=== PATIENT | male | born 1945 | race Caucasian/White ===

== ENCOUNTER 2017-10-13 06:28 | Day surgery (SDC) | payer MEDICARE, OTHER ==
[2017-10-13] MEDS ORDERED: Lactated Ringers 1,000 ML IV SCH (06:45)
--- NOTE | 2017-10-13 07:38 | PCM.HP ---
H&P History of Present Illness - General Date of Service: 10/13/17 Admit Problem/Dx: Admission Diagnosis/Problem Admission Diagnosis/Problem Colonoscopy Source of Information: Patient - History of Present Illness Initial Comments - Free Text/Narative: 72 yo wm who has a hx of colon polyps. He presents for follow up exam. Old records are not available for review. - Related Data Allergies/Adverse Reactions: Allergies Allergy/AdvReac Type Severity Reaction Status Date / Time No Known Allergies Allergy Verified 10/10/17 13:47 Home Medications: Home Meds Ascorbic Acid [Vitamin C] 1,000 mg PO DAILY 10/10/17 [History] Cholecalciferol (Vitamin D3) [Vitamin D3] 400 unit PO DAILY 10/10/17 [History] Cinnamon Bark [Cinnamon] 10/10/17 [History] Clotrimazole/Betamethasone Dip [Lotrisone Cream] 15 gm TP BID 10/10/17 [History] Docosahexanoic Acid [DHA] 100 mg PO DAILY 10/10/17 [History] Ginkgo Biloba 40 mg PO 10/10/17 [History] Gluc 2KCl/Chondr/Romulo Hy/Hy Ac [Glucosamine & Chondroitin Cap] 1 each PO DAILY 10/10/17 [History] Portuguese Ginseng Root [Portuguese Ginseng] 10/10/17 [History] Multivitamin [Daily Ramu] 1 each PO DAILY 10/10/17 [History] [place]-3/DHA/Epa/Fish Oil [[place]-3 Fish Oil 1,000 MG Sfgl] 1,000 mg PO DAILY [History] Selenium 10/10/17 [History] Past Medical History HEENT History: Reports: Impaired Vision Cardiovascular History: Reports: None Respiratory History: Reports: Sleep Apnea Gastrointestinal History: Reports: Colon Polyp Genitourinary History: Reports: Renal Disease Musculoskeletal History: Reports: None Neurological History: Reports: None Psychiatric History: Reports: None Endocrine/Metabolic History: Reports: Obesity/BMI 30+ Hematologic History: Reports: None Immunologic History: Reports: None Oncologic (Cancer) History: Reports: None Dermatologic History: Reports: None - Infectious Disease History Infectious Disease History: Reports: Chicken Pox, Measles, Mumps - Past Surgical History Head Surgeries/Procedures: Reports: None HEENT Surgical History: Reports: None Cardiovascular Surgical History: Reports: None Respiratory Surgical History: Reports: None GI Surgical History: Reports: Colonoscopy Male Surgical History: Reports: None Endocrine Surgical History: Reports: None Neurological Surgical History: Reports: None Musculoskeletal Surgical History: Reports: None Oncologic Surgical History: Reports: None Dermatological Surgical History: Reports: None Social & Family History - Family History GI: Reports: None - Tobacco Use Smoking Status *Q: Former Smoker - Caffeine Use Caffeine Use: Reports: Coffee, Soda, Tea - Alcohol Use Days Per Week of Alcohol Use: 2 - Recreational Drug Use Recreational Drug Use: No Drug Use in Last 12 Months: No H&P Review of Systems - Review of Systems: Review Of Systems: See Below General: Reports: No Symptoms HEENT: Reports: No Symptoms Pulmonary: Reports: No Symptoms Cardiovascular: Reports: No Symptoms Gastrointestinal: Reports: No Symptoms Genitourinary: Reports: No Symptoms Exam - Exam Exam: See Below - Vital Signs Vital Signs: Last Vital Signs Temp 97.4 F 10/13/17 07:27 Pulse 48 L 10/13/17 07:27 Resp 18 10/13/17 07:27 BP 123/73 10/13/17 07:27 Pulse Ox 98 10/13/17 07:27 Weight: 141.1 kg - Exam General: Alert, Oriented Lungs: Clear to Auscultation, Normal Respiratory Effort Cardiovascular: Regular Rate, Regular Rhythm GI/Abdominal Exam: Normal Bowel Sounds, Soft, Non-Tender *Q Meaningful Use (ADM) - VTE *Q VTE Pharmacological Contraindications *Q: Patient Scheduled Surgery - Problem List (1) History of adenomatous polyp of colon SNOMED Code(s): 421875312 ICD Code: Z86.010 - PERSONAL HISTORY OF COLONIC POLYPS Status: Acute Current Visit: Yes Problem List Initiated/Reviewed/Updated: Yes Orders Last 24hrs: Active Orders 24 hr Category Date Time Status Patient Status [ADT] Routine ADT 10/13/17 06:45 Ordered Patient to Empty Bladder [RC] ASDIRECTED Care 10/13/17 06:45 Active Verify Patient Consent Obtain [RC] ASDIRECTED Care 10/13/17 06:45 Active Nothing Per Oral Diet [DIET] Diet 10/12/17 Dinner Ordered Lactated Ringers [Ringers, Lactated] 1,000 ml Med 10/13/17 06:45 Active IV ASDIRECTED Peripheral IV Insertion Adult [OM.PC] Routine Oth 10/13/17 06:45 Ordered Medication Orders Lactated Ringer's (Ringers, Lactated) 1,000 mls @ 125 mls/hr IV ASDIRECTED [facility] Last Admin: 10/13/17 07:29 Dose: 125 mls/hr Assessment/Plan Comment:: c scope. procedure and risks explained to the pt to include bleeding infection perforation. He asks us to proceed.
[2017-10-13] MEDS ORDERED: Propofol 200 MG/20 ML SDV IV ONE (08:00)
[2017-10-13] MEDS ORDERED: Simethicone Drops 40 MG/0.6 ML 30 ML Bottle ONE (08:12)
--- NOTE | 2017-10-13 08:22 | PCM.OPNOTE ---
- General Post-Op/Procedure Note Date of Surgery/Procedure: 10/13/17 Operative Procedure(s): c scope Findings: nl exam Pre Op Diagnosis: hx of colon polyp Post-Op Diagnosis: nl exam Anesthesia Technique: MAC Primary Surgeon: Edgar Melendez Anesthesia Provider: Emilia Cook Pathology: none Complications: None Condition: Good Free Text/Narrative:: see dictation
--- NOTE | 2017-10-13 14:46 | OR ---
DATE OF OPERATION: 10/13/2017 SURGEON: Edgar Melendez MD PROCEDURE PERFORMED: Colonoscopy. PREOPERATIVE DIAGNOSIS: Personal history of colon polyps. POSTOPERATIVE DIAGNOSIS: Normal exam. INDICATIONS FOR PROCEDURE: This is a 72-year-old white male, who presents for followup colonoscope, he is without complaints. DESCRIPTION OF PROCEDURE: After an excellent IV sedation was administered, digital rectal exam was performed. No marked abnormality was noted. Flexible colonoscope was inserted and advanced to the cecum without difficulty. The prep was excellent. The following findings were noted: Ascending colon, unremarkable. Transverse colon, unremarkable. Descending colon, unremarkable. Sigmoid and rectum, unremarkable. Colon was deflated, scope was removed. Patient tolerated procedure well, was taken to recovery room in good condition. RECOMMENDATIONS: Repeat scope in 10 years. /[id number] /MODL
== END 2017-10-13 09:23 | disposition home or self-care (01) ==
LOC: FB.SDS 06:28
PROVIDERS: ATTEND Surgery
DX: Z12.11 Encounter for screening for malignant neoplasm of colon (principal); E66.9 Obesity, unspecified; Z68.41 Body mass index [BMI] 40.0-44.9, adult; G47.33 Obstructive sleep apnea (adult) (pediatric); Z86.010 Personal history of colon polyps; Z87.891 Personal history of nicotine dependence; Z79.899 Other long term (current) drug therapy
CPT/HCPCS: 00811-QZ; A9270-GY; J2704; J7120

== ENCOUNTER 2020-12-08 12:03 | Emergency (ER) | payer MEDICARE, OTHER ==
[2020-12-08] MEDS ORDERED: Sodium Chloride 0.9% 1,000 ML IV SCH (12:15)
[2020-12-08] MEDS ORDERED: Dexamethasone 4 MG/ML SDV IVPUSH ONE (12:17)
[2020-12-08] MEDS ORDERED: Azithromycin 500 MG in Sodium Chloride 0.9% 250 ML IV ONE (12:20)
[2020-12-08] MEDS ORDERED: Bamlanivimab 700 MG, ETESEVIMAB 1,400 MG in Sodium Chloride 0.9% 100 ML IV ONE (12:27)
[2020-12-08] MEDS ORDERED: Famotidine 20 MG/2 ML SDV IVPUSH PRN (12:27)
[2020-12-08] MEDS ORDERED: methylPREDNISolone Sodium Succinate 125 MG/2 ML SDV IVPUSH PRN (12:27)
[2020-12-08] MEDS ORDERED: diphenhydrAMINE 50 MG/ML SDV IVPUSH PRN (12:27)
[2020-12-08] MEDS ORDERED: EPINEPHrine 1 MG/ML SDV IM PRN (12:27)
--- NOTE | 2020-12-08 12:29 | EDM.PDOC ---
ED HPI GENERAL MEDICAL PROBLEM - General Chief Complaint: Respiratory Problem Stated Complaint: DEHYDRATED Time Seen by Provider: 12/08/20 12:15 Source of Information: Reports: Patient History Limitations: Reports: No Limitations - History of Present Illness INITIAL COMMENTS - FREE TEXT/NARRATIVE: Gave blood on 11/28, Anderson unwell and start Zithromax , but was seen in clinic on 12/05, seemed well with no respiratory concerns at the time But COVID test was recommended Came back today as he is feeling dehydrated , has dry cough and body aches , denies any fever Onset: Gradual Onset Date: 11/29/20 Duration: Getting Worse Location: Reports: Chest Severity: Moderate Improves with: Reports: None Worsens with: Reports: Breathing Context: Reports: Sick Contact Associated Symptoms: Reports: Cough, Headaches. Denies: Fever/Chills - Related Data Allergies Allergy/AdvReac Type Severity Reaction Status Date / Time No Known Allergies Allergy Verified 10/10/17 13:47 Home Meds: Home Meds Ascorbic Acid [Vitamin C] 1,000 mg PO DAILY 10/10/17 [History] [place]-3/DHA/Epa/Fish Oil [[place]-3 Fish Oil 1,000 MG Sfgl] 1,000 mg PO DAILY 10/10/17 [History] RX: Cholecalciferol (Vitamin D3) [Vitamin D3] 400 unit PO DAILY 10/10/17 [History] RX: Clotrimazole/Betamethasone Dip [Lotrisone Cream] 15 gm TP BID 10/10/17 [History] RX: Docosahexaenoic Acid [DHA] 100 mg PO DAILY 10/10/17 [History] RX: Glucosam/Chondr/Collagn/Hyalur [Glucosamine & Chondroitin Cap] 1 each PO DAILY 10/10/17 [History] RX: Multivitamin [Daily Ramu] 1 each PO DAILY 10/10/17 [History] Past Medical History HEENT History: Reports: Impaired Vision Cardiovascular History: Reports: None Respiratory History: Reports: Sleep Apnea Gastrointestinal History: Reports: Colon Polyp Genitourinary History: Reports: Renal Disease Musculoskeletal History: Reports: None Neurological History: Reports: None Psychiatric History: Reports: None Endocrine/Metabolic History: Reports: Obesity/BMI 30+ Hematologic History: Reports: None Immunologic History: Reports: None Oncologic (Cancer) History: Reports: None Dermatologic History: Reports: None - Infectious Disease History Infectious Disease History: Reports: Chicken Pox, Measles, Mumps - Past Surgical History Head Surgeries/Procedures: Reports: None HEENT Surgical History: Reports: None Cardiovascular Surgical History: Reports: None Respiratory Surgical History: Reports: None GI Surgical History: Reports: Colonoscopy Male Surgical History: Reports: None Endocrine Surgical History: Reports: None Neurological Surgical History: Reports: None Musculoskeletal Surgical History: Reports: None Oncologic Surgical History: Reports: None Dermatological Surgical History: Reports: None Social & Family History - Family History GI: Reports: None - Caffeine Use Caffeine Use: Reports: Coffee, Soda, Tea ED ROS GENERAL - Review of Systems Review Of Systems: See Below Constitutional: Reports: Chills, Weakness, Fatigue HEENT: Reports: No Symptoms Respiratory: Reports: Cough (dry) Cardiovascular: Reports: No Symptoms Endocrine: Reports: Fatigue GI/Abdominal: Reports: Anorexia, Decreased Appetite. Denies: Abdominal Pain : Reports: No Symptoms Musculoskeletal: Reports: Joint Pain, Muscle Pain, Muscle Stiffness Skin: Reports: No Symptoms Neurological: Reports: Dizziness, Headache, Weakness. Denies: Difficulty Walking Psychiatric: Reports: No Symptoms Hematologic/Lymphatic: Reports: No Symptoms Immunologic: Reports: No Symptoms ED EXAM, GENERAL - Physical Exam Exam: See Below Exam Limited By: No Limitations General Appearance: Alert, WD/WN, No Apparent Distress, Mild Distress, Other (i ll looking) Eye Exam: Bilateral Eye: EOMI Ears: Hearing Grossly Normal Nose: Normal Inspection. No: Nasal Tenderness Throat/Mouth: Normal Oropharynx Head: Atraumatic, Normocephalic. No: Facial Tenderness, Sinus Tenderness Neck: Supple, Non-Tender Respiratory/Chest: No Respiratory Distress, Decreased Breath Sounds, Rales Cardiovascular: Regular Rate, Rhythm GI/Abdominal: Soft, Non-Tender Back Exam: No: CVA Tenderness (R), CVA Tenderness (L) Extremities: Normal Range of Motion, No Pedal Edema, Normal Capillary Refill Neurological: Alert, Oriented, CN II-XII Intact Psychiatric: Normal Affect, Normal Mood Skin Exam: Warm, Dry, Intact Course - Vital Signs Last Recorded V/S: Last Vital Signs Temp 36.6 C 12/08/20 12:03 Pulse 63 12/08/20 12:03 Resp 20 12/08/20 12:03 BP 115/70 12/08/20 12:03 Pulse Ox 92 L 12/08/20 12:03 - Orders/Labs/Meds Orders: Active Orders 24 hr Category Date Time Status Chest wo Cont [CT] Stat Exams 12/08/20 12:15 Taken EPINEPHrine [Adrenalin] Med 12/08/20 12:27 Active 0.3 mg IM ASDIRECTED PRN Famotidine [Pepcid] Med 12/08/20 12:27 Active 20 mg IVPUSH ASDIRECTED PRN Sodium Chloride 0.9% [Normal Saline] 1,000 ml Med 12/08/20 12:15 Active IV ASDIRECTED Sodium Chloride 0.9% [Saline Flush] Med 12/08/20 12:30 Active 30 ml FLUSH ASDIRECTED diphenhydrAMINE [Benadryl] Med 12/08/20 12:27 Active 50 mg IVPUSH ASDIRECTED PRN methylPREDNISolone Sod Succ [Solu-MEDROL] Med 12/08/20 12:27 Active 125 mg IVPUSH ASDIRECTED PRN Medication Orders Diphenhydramine HCl (Diphenhydramine 50 Mg/Ml Sdv) 50 mg IVPUSH ASDIRECTED PRN PRN Reason: hypersensitivity reaction Epinephrine HCl (Epinephrine 1 Mg/Ml Sdv) 0.3 mg IM ASDIRECTED PRN PRN Reason: hypersensitivity reaction Famotidine (Famotidine 20 Mg/2 Ml Sdv) 20 mg IVPUSH ASDIRECTED PRN PRN Reason: hypersensitivity reaction Sodium Chloride (Normal Saline) 1,000 mls @ 999 mls/hr IV ASDIRECTED [facility] Last Admin: 12/08/20 13:15 Dose: 999 mls/hr Documented by: DEDE Methylprednisolone Sodium Succinate (Methylprednisolone Sodium Succinate 125 Mg/2 Ml Sdv) 125 mg IVPUSH ASDIRECTED PRN PRN Reason: hypersensitivity reaction Sodium Chloride (Sodium Chloride 0.9% 10 Ml Syringe) 30 ml FLUSH ASDIRECTED [facility] Labs: Laboratory Tests 12/08/20 12/08/20 12/08/20 Range/Units 12:30 12:30 12:30 WBC 4.7 (3.2-10.1) x10-3/uL RBC 4.65 (3.90-5.90) x10(6)uL Hgb 14.1 (12.9-17.7) g/dL Hct 41.1 (38.3-50.1) % MCV 88.6 (80.8-98.7) fL MCH 30.3 (27.0-33.3) pg MCHC 34.3 (28.7-35.3) g/dL RDW 13.0 (12.4-15.0) % Plt Count 179 (117-477) x10(3)uL MPV 6.7 (6.7-11.0) fL Neut % (Auto) 86.8 H (40.3-71.8) % Lymph % (Auto) 9.7 L (15.8-45.3) % Bell % (Auto) 3.3 L (5.5-15.2) % Eos % (Auto) 0.0 L (0.1-6.8) % Baso % (Auto) 0.2 L (0.3-3.8) % Neut # (Auto) 4.1 (1.7-6.9) x10-3/uL Lymph # (Auto) 0.5 (0.5-4.5) x10-3/uL Bell # (Auto) 0.2 (0.0-1.2) x10-3/uL Eos # (Auto) 0.0 (0.0-0.6) x10-3/uL Baso # (Auto) 0.0 (0.0-0.3) x10-3/uL D-Dimer, Quantitative 0.74 H (0.0-0.59) mg/LFEU Sodium 135 (135-145) mmol/L Potassium 4.1 (3.5-5.3) mmol/L Chloride 101 (100-110) mmol/L Carbon Dioxide 23 (21-32) mmol/L BUN 33 H (7-18) mg/dL Creatinine 1.9 H (0.70-1.30) mg/dL Est Cr Clr Drug Dosing 36.88 mL/min Estimated GFR (MDRD) 35 L (>60) BUN/Creatinine Ratio 17.4 (9-20) Glucose 138 H (80-116) mg/dL Calcium 8.3 L (8.6-10.2) mg/dL Total Bilirubin 1.1 (0.1-1.3) mg/dL AST 39 H (5-25) IU/L ALT 41 H (12-36) U/L Alkaline Phosphatase 67 (56-112) IU/L Total Protein 7.0 (6.0-8.0) g/dL Albumin 3.0 L (3.2-4.6) g/dL Globulin 4.0 g/dL Albumin/Globulin Ratio 0.8 Meds: Medications Generic Name Dose Route Start Last Admin Trade Name Freq PRN Reason Stop Dose Admin Diphenhydramine HCl 50 mg 12/08/20 12:27 Diphenhydramine 50 Mg/Ml Sdv IVPUSH ASDIRECTED PRN hypersensitivity reaction Epinephrine HCl 0.3 mg 12/08/20 12:27 Epinephrine 1 Mg/Ml Sdv IM ASDIRECTED PRN hypersensitivity reaction Famotidine 20 mg 12/08/20 12:27 Famotidine 20 Mg/2 Ml Sdv IVPUSH ASDIRECTED PRN hypersensitivity reaction Sodium Chloride 1,000 mls @ 999 mls/hr 12/08/20 12:15 12/08/20 13:15 Normal Saline IV 999 mls/hr ASDIRECTED FREDY Administration Methylprednisolone Sodium Succinate 125 mg 12/08/20 12:27 Methylprednisolone Sodium Succinate 125 Mg/2 Ml Sdv IVPUSH ASDIRECTED PRN hypersensitivity reaction Sodium Chloride 30 ml 12/08/20 12:30 Sodium Chloride 0.9% 10 Ml Syringe FLUSH ASDIRECTED FREDY Discontinued Medications Generic Name Dose Route Start Last Admin Trade Name Antonioq PRN Reason Stop Dose Admin Dexamethasone 8 mg 12/08/20 12:17 12/08/20 13:20 Dexamethasone 4 Mg/Ml Sdv IVPUSH 12/08/20 12:18 8 mg ONETIME ONE Administration Azithromycin 500 mg/ Sodium 250 mls @ 250 mls/hr 12/08/20 12:20 12/08/20 13:32 Chloride IV 12/08/20 13:19 250 mls/hr ONETIME ONE Administration Bamlanivimab 700 mg/ 160 mls @ 310 mls/hr 12/08/20 12:27 12/08/20 15:23 Etesevimab 1,400 mg/ Sodium IV 12/08/20 12:57 310 mls/hr Chloride ONETIME ONE Administration - Re-Assessments/Exams Free Text/Narrative Re-Assessment/Exam: 12/08/20 12:28 Bamlanivimab ordered for pt : positive COVID , Age> 65, BMI > 35 12/08/20 15:15 discussed the use BAM for treatment of COVID Pt's questions answered, Agrees to infusion 12/08/20 17:39 pt has complete BAM feeling better Continue with vitamins recommended Departure - Departure Time of Disposition: 17:40 Disposition: Home, Self-Care 01 Clinical Impression: COVID-19, Dehydration - Discharge Information *PRESCRIPTION DRUG MONITORING PROGRAM REVIEWED*: Not Applicable *COPY OF PRESCRIPTION DRUG MONITORING REPORT IN PATIENT APOLINAR: Not Applicable Instructions: Prone Position Therapy, 10 Things You Can Do to Manage Your COVID-19 Symptoms at Home - [facility] (09/01/2020), Dehydration, Adult, [id number], COVID-19: How to Protect Yourself and Others - [facility], Rehydration, Elderly, COVID- 19: What to Do If You Are Sick- [facility] (05/03/2020) Referrals: Marc Lopez MD [Primary Care Provider] - Forms: ED Department Discharge Additional Instructions: Continue with vitamin C, D and Zinc supplements If any concerns , return to ER or make appointment to see your PCP Sepsis Event Note (ED) - Focused Exam Vital Signs: Vital Signs Temp Pulse Resp BP Pulse Ox 12/08/20 12:03 36.6 C 63 20 115/70 92 L - My Orders Last 24 Hours: My Active Orders 12/08/20 12:15 Chest wo Cont [CT] Stat Sodium Chloride 0.9% [Normal Saline] 1,000 ml IV ASDIRECTED 12/08/20 12:27 EPINEPHrine [Adrenalin] 0.3 mg IM ASDIRECTED PRN Famotidine [Pepcid] 20 mg IVPUSH ASDIRECTED PRN diphenhydrAMINE [Benadryl] 50 mg IVPUSH ASDIRECTED PRN methylPREDNISolone Sod Succ [Solu-MEDROL] 125 mg IVPUSH ASDIRECTED PRN 12/08/20 12:30 Sodium Chloride 0.9% [Saline Flush] 30 ml FLUSH ASDIRECTED - Assessment/Plan Last 24 Hours: My Active Orders 12/08/20 12:15 Chest wo Cont [CT] Stat Sodium Chloride 0.9% [Normal Saline] 1,000 ml IV ASDIRECTED 12/08/20 12:27 EPINEPHrine [Adrenalin] 0.3 mg IM ASDIRECTED PRN Famotidine [Pepcid] 20 mg IVPUSH ASDIRECTED PRN diphenhydrAMINE [Benadryl] 50 mg IVPUSH ASDIRECTED PRN methylPREDNISolone Sod Succ [Solu-MEDROL] 125 mg IVPUSH ASDIRECTED PRN 12/08/20 12:30 Sodium Chloride 0.9% [Saline Flush] 30 ml FLUSH ASDIRECTED
[2020-12-08] MEDS ORDERED: Sodium Chloride 0.9% 10 ML Syringe FLUSH SCH (12:30)
--- NOTE | 2020-12-09 07:29 | CT ---
CT CHEST WITHOUT CONTRAST INDICATION Shortness of breath, cough, low oxygen SATs, nonsmoker. TECHNIQUE Spiral 3.75 mm axial sections were obtained through the chest and compared with chest x-ray of 11/30/07. TOTAL EXAM DLP: 909.13 mGy/cm. FINDINGS Multifocal, mostly subpleural areas of infiltrate are scattered about the lungs, most severe in the right upper lobe posterolaterally in a pattern compatible with COVID-19 pneumonia - correlate clinically. No gross mass lesions or pleural effusions could be identified. The pericardium is slightly thickened, which could be on the basis of minimal pericarditis or pericardial effusion of small size - correlate clinically. The heart did not appear grossly enlarged, but was at the upper limits of normal in size. Low-density lesion in the left lobe of the liver likely represents a cystic structure. The upper abdomen included on this study was otherwise unremarkable. IMPRESSION Findings are compatible with COVID pneumonia. Report was called to Dr. Hodges immediately after the examination was interpreted. [facility]
== END 2020-12-08 17:50 | disposition home or self-care (01) ==
LOC: FB.ED 12:03
DX: U07.1 COVID-19 (principal); E86.0 Dehydration; E66.9 Obesity, unspecified; Z68.41 Body mass index [BMI] 40.0-44.9, adult
CPT/HCPCS: 36415; 71250; 80053; 85025; 85379; 96365; 96375; 99284; J0456; J1100; J7030; J7050; M0245; Q0245